=== PATIENT | male | born 1975 | race Caucasian/White ===

== ENCOUNTER 2022-02-05 10:20 | Emergency (ER) | payer MEDICARE, SELFPAY ==
--- NOTE | ~2022-02-05 | XR_ITS ---
EXAMINATION: XR chest 2V DATE: 02/05/2022 11:29 INDICATION: Shortness of breath and cough. TECHNIQUE: Frontal and lateral views of the chest were obtained. COMPARISON: None. FINDINGS: There is no pneumonia, pleural effusion, or pneumothorax. The heart size is normal. IMPRESSION: 1. No acute cardiopulmonary disease. Reviewed, dictated and finalized at location A. [facility] [employer] [facility]
[2022-02-05 10:30] VITALS: PULSE 110; O2SAT 94
[2022-02-05 10:33] VITALS: BP 136/87; PULSE 104; RESP 20; TEMP 37.6; O2SAT 96
--- NOTE | 2022-02-05 10:34 | ED.GENADULT ---
HPI - General Adult General Chief complaint: Upper Respiratory Infection Stated complaint: chest congestion Time Seen by Provider: 02/05/22 10:34 Source: patient Mode of arrival: ambulatory Limitations: no limitations History of Present Illness HPI narrative: 46-year-old male patient presents to the [facility] with complaints of shortness of breath, cough for the last several weeks. Patient states he has gotten several treatments from his primary care provider including Z-Stevan, amoxicillin, prednisone, inhaler and states he continues to have symptoms. Last night he did spike a fever of 101 and states that his shortness of breath and coughing got worse especially when he was trying to lay down last night. Patient denies being a smoker. Related Data Home Medications Medication Instructions Recorded Confirmed albuterol sulfate 90 mcg/actuation 1 inh inhalation DIRECTED 02/05/22 02/05/22 aerosol inhaler benztropine 0.5 mg tablet 0.5 mg BID 02/05/22 02/05/22 haloperidol 10 mg tablet 10 mg BID 02/05/22 02/05/22 lamotrigine 100 mg tablet 100 mg BID 02/05/22 02/05/22 prednisone 10 mg tablet 10 mg DIRECTED 02/05/22 02/05/22 tadalafil 20 mg tablet 20 mg DIRECTED 02/05/22 02/05/22 Allergies Allergy/AdvReac Type Severity Reaction Status Date / Time No Known Allergies Allergy Verified 02/05/22 10:36 Review of Systems Review of Systems: CONSTITUTIONAL: Positive fever, body aches and chills, denies sweats. EYES: Denies visual changes, redness, or discharge. ENT: Denies rhinorrhea, congestion, sore throat, or otalgia. CARDIOVASCULAR: Denies chest pain, palpitations, or edema. RESPIRATORY: Positive cough with dyspnea. GASTROINTESTINAL: Denies abdominal pain, nausea, vomiting, or diarrhea. GENITOURINARY: Denies dysuria or hematuria. SKIN: Denies rash or itching. MUSCULOSKELETAL: Denies back pain, joint pain, or myalgia. NEUROLOGIC: Denies headache, numbness, or weakness. PSYCHIATRIC: Denies anxiety or depression. [facility] Past Medical History Medical History (Updated 02/05/22 @ 12:25 by KIMBER Culp) Schizoaffective disorder Comments At the time of my signature I agree with nursing past medical history, surgical, social, and family history. There is no relevant family history pertinent to the presenting complaint. Exam Narrative: GENERAL: Well-appearing, well-nourished, and in no acute distress. HEAD: Normocephalic, atraumatic. EYES: PERRLA and EOMI. ENT: Nares with erythema and edema noted bilaterally, no rhinorrhea or epistaxis. Mucous membranes moist. Posterior pharynx no erythema, tonsillar enlargement, exudates or lesions present. Bilateral TMs are clear no erythema or foreign bodies the canal. NECK: Supple. No lymphadenopathy CHEST: Unable to hear lung sounds to the left upper lower lobes decreased lung sounds noted to the right lower lobe. No tripoding noted. Patient is able to talk in clear complete sentences. HEART: Regular rate and rhythm. No murmur heard. Normal peripheral pulses. ABDOMEN: Soft, nontender, nondistended, normal active bowel sounds. EXTREMITIES: Normal range of motion. No edema. SKIN: Warm, dry, no rash. NEURO: No focal deficits. Alert and oriented x3. Course Course Level of Care: Express Care Visit Reevaluation(s) Reevaluation #1: Re-evaluate patient after receiving the breathing treatment. States he does feel better receiving treatment. Patient has slightly diminished lung sounds at bilateral lower lobes but they have improved since receiving the breathing treatment. Patient is currently 97% on room air. Notified patient that his x-ray is clear does not show any pneumonia at this time. Discussed with patient that he was negative for both COVID and influenza at this time. Discussed with patient that he has not yet completed the steroids that was given to him by his doctor and discuss with him how this is bradley will help with the inflammation. I highly encourage that he comple
--- NOTE | 2022-02-05 10:41 | ECG_ITS ---
Measurements Intervals [place] Rate: 90 P: 47 NH: 168 QRS: 26 QRSD: 113 T: 22 QT: 377 QTc: 462 Interpretive Statements SINUS RHYTHM INCOMPLETE RIGHT BUNDLE BRANCH BLOCK BORDERLINE T WAVE ABNORMALITY- INFERIOR LEADS BASELINE ARTIFACT- I, II, III, AVR, AVL, AVF BORDERLINE ECG NO PREVIOUS ECG AVAILABLE FOR COMPARISON Electronically Signed On 02-06-2022 7:29:32 PEDIATRIC PHYSICIAN ASSISTANT by Jacob Chavez D.O.
[2022-02-05] MEDS: ALBUTEROL SULFATE NEB 2.5 MG/3 ML INH INHALATION (11:08)
[2022-02-05] MEDS: IPRATROPIUM BR 0.02% INH SOLN 0.5 MG/2.5 ML VIAL INHALATION (11:08)
[2022-02-05 11:45] VITALS: PULSE 96; O2SAT 98
== END 2022-02-05 12:32 | disposition home or self-care (01) ==
PROVIDERS: Emergency Provider Nurse Practitioner Family; PCP Internal Medicine
DX: J06.9 Acute upper respiratory infection, unspecified (principal); R05.9 Cough, unspecified; Z20.822 Contact with and (suspected) exposure to COVID-19; F25.9 Schizoaffective disorder, unspecified; I45.10 Unspecified right bundle-branch block
CPT/HCPCS: 71046; 87426; 87804; 93005; 94640; 99213; C9803; G0463